=== PATIENT | female | born 1955 | race Two or more races ===

== ENCOUNTER → 2018-01-14 | Outpatient (CLI) | payer BC ==
[~2018-01-14] MED LIST: CONTRAST GIVEN. MC; IOHEXOL 300 MG/ML 100ML VIAL. IV
[2018-01-14 22:55] LABS: ADD MAN DIFF? NO
[2018-01-14 22:57] LABS: BASO # 0.1 x10^3/uL (0.0-0.2); BASO % 1 % (0-3); EOS # 0.2 x10^3/uL (0.0-0.7); EOS % 2 % (0-3); HEMATOCRIT 39.3 % (36.0-47.0); HEMOGLOBIN 13.4 g/dL (12.0-15.5); LYMPH % 30 % (24-48); MEAN CORPUSCULAR HEMOGLOBIN 30 pg (25-35); MEAN CORPUSCULAR HGB CONC 34 g/dL (31-37); MEAN CORPUSCULAR VOLUME 87 fL (79-100); MONO # 0.5 x10^3/uL (0.0-1.1); MONO % 5 % (0-9); NEUT # 6.4 x10^3uL (1.8-7.7); NEUT % 63 % (31-73); PLATELET COUNT 356 x10^3/uL (140-400); RED BLOOD COUNT 4.53 x10^6/uL (3.50-5.40); RED CELL DISTRIBUTION WIDTH 14.1 % (11.5-14.5); WHITE BLOOD COUNT 10.2 x10^3/uL (4.0-11.0)
[2018-01-14 23:08] LABS: CREATININE 0.6 mg/dL (0.6-1.0); GFR 101.3
[2018-01-14 23:08] LABS: BLOOD UREA NITROGEN 12 mg/dL (7-20)
== END | disposition home or self-care (01) ==
LOC: LAB 22:12
DX: K52.9 Noninfective gastroenteritis and colitis, unspecified (principal); Z90.49 Acquired absence of other specified parts of digestive tract
CPT/HCPCS: 36415; 74177; 82565; 84520; 85025; Q9967

== ENCOUNTER → 2020-01-16 | Outpatient (CLI) | payer BC ==
--- NOTE | 2020-01-16 11:41 | RAD ---
DATE: 01/16/2020 8:10 AM EXAM: DIGITAL SCREEN BILAT W/CAD HISTORY: Screening COMPARISON: 06/20/2016 Bilateral CC and MLO views of the breasts were performed. . This study was interpreted with the benefit of Computerized Aided Detection (CAD). FINDINGS: Breast Density: SCATTERED The breast parenchyma shows scattered fibroglandular densities. Breast parenchyma level B No suspicious masses, microcalcifications or architectural distortion is present to suggest malignancy in either breast. The visualized axillae are unremarkable. IMPRESSION: No mammographic evidence of malignancy. BI-RADS CATEGORY: 1 NEGATIVE RECOMMENDED FOLLOW-UP: 12M 12 MONTH FOLLOW-UP Annual screening mammography is recommended, unless clinically indicated sooner based on symptoms or change in physical exam. PQRS compliance statement: Patient information was entered into a reminder system with a target due date 01/16/2021 for the next mammogram. Mammography is a sensitive method for finding small breast cancers, but it does not detect them all and is not a substitute for careful clinical examination. A negative mammogram does not negate a clinically suspicious finding and should not result in delay in biopsying a clinically suspicious abnormality. "Our facility is accredited by the [employer] Mammography Program."
== END | disposition home or self-care (01) ==
LOC: MAMMO 07:56
PROVIDERS: ATTEND Family Medicine
DX: Z12.31 Encounter for screening mammogram for malignant neoplasm of breast (principal)
CPT/HCPCS: 77067